=== PATIENT | female | born 1945 | race Caucasian/White ===

== ENCOUNTER → 2021-10-28 | Outpatient (CLI) | payer MEDICARE, OTHER ==
--- NOTE | 2021-10-28 18:18 | FL ---
EXAMINATION TYPE: FL barium swallow w video DATE OF EXAM: 10/28/2021 MODIFIED SWALLOW / DEGLUTITION STUDY CLINICAL HISTORY: Dysphagia. TECHNIQUE: Deglutition study is performed utilizing thin barium, puree and solid applesauce. COMPARISON: None. FINDINGS: Fluoroscopic time 35 seconds. No images. There is no evidence of laryngeal penetration or a spiration with any modality tested. IMPRESSION: No significant penetration or aspiration at the time of the study. Please refer to speech therapist notes for further details.
== END | disposition home or self-care (01) ==
LOC: RADFLMAIN 11:38
PROVIDERS: ATTEND Family Medicine
DX: R13.10 Dysphagia, unspecified (principal)
CPT/HCPCS: 74230